=== PATIENT | female | born 1945 | race Caucasian/White ===

== ENCOUNTER 2016-11-14 20:55 | Emergency (ER) | payer MEDICARE, OTHER ==
[2016-11-14 21:21] VITALS: BP 133/82
--- NOTE | 2016-11-14 21:45 | EDM.PDOC ---
ED HPI GENERAL MEDICAL PROBLEM - General Chief Complaint: Respiratory Problem Stated Complaint: Cough Time Seen by Provider: 11/14/16 21:30 Source of Information: Reports: Patient, RN Notes Reviewed History Limitations: Reports: No Limitations - History of Present Illness INITIAL COMMENTS - FREE TEXT/NARRATIVE: 71 year old female presents to the ED with complaints of a cough productive of occasional white/thin sputum. She's had the cough for approximately 10 days. She has associated symptoms of hoarse voice, sinus congestion and pressure, occasional runny nose, and ear pressure. She denies fever or chills, body aches , throat pain. No chest pain or shortness of breath. She has a history of seasonal allergies and says her allergies do see to be bothering her. She has tried afrin for sinus congestion. She is not a smoker and has no history of asthma or COPD. 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 Denies: Fever, Chills, Diaphoresis HEENT: Reports: Ear Pain, Rhinitis, Sinus Problem, Other (hoarse voice ). Denies: Throat Pain Respiratory: Reports: Cough, Sputum. Denies: Shortness of Breath Cardiovascular: Reports: No Symptoms. Denies: Chest Pain, Edema, Lightheadedness GI/Abdominal: Reports: No Symptoms. Denies: Abdominal Pain, Diarrhea, Vomiting ED EXAM, GENERAL - Physical Exam Exam: See Below Exam Limited By: No Limitations General Appearance: Alert, WD/WN, No Apparent Distress Ears: Normal External Exam, Normal Canal, Hearing Grossly Normal, Normal TMs, Other (fluid behind left TM. no erythema or sign of infection ) Ear Exam: Right Ear: TM normal, Left Ear: TM Dull, Bilateral Ear: Auricle Normal , Canal Normal Nose: Normal Inspection, Normal Mucosa Throat/Mouth: Normal Inspection, Normal Oropharynx, Other (hoarse voice ) Neck: Normal Inspection, Supple, Non-Tender Respiratory/Chest: No Respiratory Distress, Lungs Clear, Normal Breath Sounds, No Accessory Muscle Use, Chest Non-Tender, Other (occasional dry sounding cough) Cardiovascular: Regular Rate, Rhythm, No Edema, No Murmur Neurological: Alert, Oriented, Normal Cognition Skin Exam: Warm, Dry, Intact Course - Vital Signs Last Recorded V/S: Last Vital Signs Temp 97.8 F 11/14/16 21:19 Pulse 94 11/14/16 21:19 Resp 20 11/14/16 21:19 BP 133/82 11/14/16 21:19 Pulse Ox 98 11/14/16 21:19 Departure - Departure Time of Disposition: 21:42 Disposition: Home, Self-Care 01 Condition: good Clinical Impression: Bronchitis Allergic rhinitis Qualifiers: Allergic rhinitis trigger: unspecified Allergic rhinitis seasonality: seasonal Qualified Code(s): J30.2 - Other seasonal allergic rhinitis - Discharge Information Prescriptions: Azithromycin [Zithromax] 250 mg PO DAILY #6 tablet Instructions: Acute Bronchitis, [id number], Allergic Rhinitis Referrals: Henny Figueroa MD [Primary Care Provider] - Forms: ED Department Discharge Additional Instructions: Zithromax 2 tabs on day 1, then 1 tab daily for next 4 days Flonase 1 spray to each nostril twice a day for allergies Zyrtec or Claritin once a day for allergy symptoms Tylenol as needed for discomfort Follow-up in clinic next week if not improved Return to ER with worsening of symptoms
== END 2016-11-14 22:03 | disposition home or self-care (01) ==
LOC: JD.ED 20:55
DX: J40 Bronchitis, not specified as acute or chronic (principal); J30.2 Other seasonal allergic rhinitis; F41.9 Anxiety disorder, unspecified; Z96.649 Presence of unspecified artificial hip joint; Z79.2 Long term (current) use of antibiotics; Z79.899 Other long term (current) drug therapy; Z88.8 Allergy status to other drugs, medicaments and biological substances; Z91.030 Bee allergy status
CPT/HCPCS: 99283

== ENCOUNTER 2016-12-24 08:56 | Day surgery (SDC) | payer MEDICARE, OTHER ==
[~2016-12-24 08:56] MED LIST: Cefuroxime 10 MG/ML SYRINGE EYELF SCH; Lidocaine 1% PF 2 ML SDV INJECT SCH; Pilocarpine 4% Ophth Soln 15 ML Bot EYELF SCH
[2016-12-24] MEDS: Polymyxin B/Trimethoprim 10 ML Bottle EYELF SCH ×3 (09:46→11:29)
[2016-12-24] MEDS: Brimonidine 0.2% Ophth Soln 5 ML Bottle EYELF SCH ×3 (09:51→11:29)
[2016-12-24] MEDS: Phenylephrine 2.5% Ophth Soln 2 ML Bot EYELF SCH ×5 (09:57→11:18)
--- NOTE | 2016-12-24 10:06 | PCM.PREANE ---
Preanesthetic Assessment - Anesthesia/Transfusion/Family Hx Anesthesia History: Prior Anesthesia Without Reaction Family History of Anesthesia Reaction: No Transfusion History: No Prior Transfusion(s) - Review of Systems General: No Symptoms, Other Pulmonary: Other (s/p bronchitis 3 weeks ago, no residual ) Cardiovascular: Chest Pain (rarely, s/p workup 2 weeks ago, all negative) 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: No symptoms Neurological: No Symptoms Other: Reports: Depression - Physical Assessment NPO Status Date: 12/23/16 NPO Status Time: 21:00 Pulse: 71 O2 Sat by Pulse Oximetry: 98 Respiratory Rate: 16 Blood Pressure: 118/68 Vital Signs: Last Vital Signs Temp 36.5 C 12/24/16 09:35 Pulse 71 12/24/16 09:35 Resp 16 12/24/16 09:35 BP 118/68 12/24/16 09:35 Pulse Ox 98 12/24/16 09:35 Height: 1.63 m Weight: 68.946 kg ASA Class: 2 Mental Status: Alert & Oriented x3 Airway Class: Mallampati = 2 Dentition: Reports: Normal Dentition Thyro-Mental Finger Breadths: 2 Mouth Opening Finger Breadths: 2 ROM/Head Extension: Full Lungs: Clear to auscultation, Normal respiratory effort Cardiovascular: Regular Rate, Regular Rhythm - Allergies Allergies/Adverse Reactions: Allergies Allergy/AdvReac Type Severity Reaction Status Date / Time venom-honey bee Allergy Hives Verified 12/23/16 16:02 [bee venom (honey bee)] propoxyphene [From Darvon] AdvReac Dizziness Verified 12/23/16 16:02 - Blood Blood Available: No Product(s) Available: None - Anesthesia Plan Pre-Op Medication Ordered: None - Acknowledgements Anesthesia Type Planned: MAC Pt an Appropriate Candidate for the Planned Anesthesia: Yes Alternatives and Risks of Anesthesia Discussed w Pt/Guardian: Yes Pt/Guardian Understands and Agrees with Anesthesia Plan: Yes PreAnesthesia Questionnaire 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 History: Reports: 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, , Other (See Below) Other OB/BYN History: A and P repair Psychiatric History: Reports: Anxiety - Past Surgical History Musculoskeletal Surgical History: Reports: Hip Replacement - SUBSTANCE USE Smoking Status *Q: Never Smoker Recreational Drug Use History: No - HOME MEDS Home Medications: Home Meds LORazepam [Ativan] 1 mg PO BID 02/19/16 [History] buPROPion [Wellbutrin] 300 mg PO DAILY 02/19/16 [History] Naproxen 500 mg PO BID 07/13/16 [History] - CURRENT (IN HOUSE) MEDS Current Meds: Current Medications Brimonidine Tartrate (Alphagan 0.2% Ophth Soln) 0 ml EYELF ASDIRECTED DARLING Stop: 12/25/16 18:00 Last Admin: 12/24/16 09:51 Dose: 1 drop Cefuroxime Sodium (Zinacef) 0 mg EYELF ASDIRECTED DARLING Stop: 12/24/16 18:00 Lidocaine HCl (Xylocaine-Mpf 1%) 10 ml INJECT ASDIRECTED DARLING Stop: 12/24/16 18:00 Phenylephrine HCl (Brock-Synephrine 2.5% Ophth Soln) 0 ml EYELF ASDIRECTED DARLING Stop: 12/24/16 18:00 Last Admin: 12/24/16 09:57 Dose: 1 drop Pilocarpine HCl (Pilocar 4% Ophth Soln) 0 ml EYELF ASDIRECTED DARLING Stop: 12/24/16 18:00 Polymyxin/Trimethoprim Sulfate (Polytrim Ophth Soln) 0 ml EYELF ASDIRECTED DARLING Stop: 12/24/16 18:00 Last Admin: 12/24/16 09:46 Dose: 1 drop Tetracaine HCl (Tetracaine 0.5% Steri-Unit Asmmi) 0 ml EYELF ASDIRECTED DARLING Stop: 12/24/16 18:00 Tropicamide (Mydriacyl 1% Ophth Soln) 0 ml EYELF ASDIRECTED DARLING Stop: 12/24/16 18:00 Last Admin: 12/24/16 10:01 Dose: 1 drop
[2016-12-24] MEDS: Tetracaine HCl/PF 0.5% 4 ML Bottle EYELF SCH ×2 (11:06→11:21)
--- NOTE | 2016-12-24 11:35 | PCM48HPAN ---
Post Anesthesia Note - EVALUATION WITHIN 48HRS OF ANESTHETIC Vital Signs in Normal Range: Yes Patient Participated in Evaluation: Yes Respiratory Function Stable: Yes Airway Patent: Yes Cardiovascular Function Stable: Yes Hydration Status Stable: Yes Pain Control Satisfactory: Yes Nausea and Vomiting Control Satisfactory: Yes Mental Status Recovered: Yes
[2016-12-24 11:42] VITALS: BP 115/61
== END 2016-12-24 11:40 | disposition home or self-care (01) ==
LOC: JD.SDS 08:56
PROVIDERS: ATTEND Ophthalmology
DX: H26.9 Unspecified cataract (principal); F41.9 Anxiety disorder, unspecified; F32.9 Major depressive disorder, single episode, unspecified; Z90.710 Acquired absence of both cervix and uterus; Z87.891 Personal history of nicotine dependence; Z96.649 Presence of unspecified artificial hip joint; Z79.899 Other long term (current) drug therapy; Z88.8 Allergy status to other drugs, medicaments and biological substances; Z91.030 Bee allergy status
CPT/HCPCS: 66984; A9270; C1780; J0697

== ENCOUNTER 2017-01-21 09:35 | Day surgery (SDC) | payer MEDICARE, OTHER ==
[2017-01-21] MEDS: Polymyxin B/Trimethoprim 10 ML Bottle EYERT SCH ×4 (09:44→11:30)
[2017-01-21] MEDS: Brimonidine 0.2% Ophth Soln 5 ML Bottle EYERT SCH ×4 (09:48→11:30)
[2017-01-21] MEDS: Phenylephrine 2.5% Ophth Soln 2 ML Bot EYERT SCH ×6 (09:52→11:03)
--- NOTE | 2017-01-21 09:54 | PCM.PREANE ---
Preanesthetic Assessment - Anesthesia/Transfusion/Family Hx Anesthesia History: Prior Anesthesia Without Reaction Family History of Anesthesia Reaction: No Transfusion History: No Prior Transfusion(s) - Review of Systems General: No Symptoms Pulmonary: No Symptoms Cardiovascular: No Symptoms 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: No symptoms Neurological: No Symptoms Other: Reports: None - Physical Assessment NPO Status Date: 01/20/17 NPO Status Time: 00:00 Pulse: 78 O2 Sat by Pulse Oximetry: 98 Respiratory Rate: 16 Blood Pressure: 114/63 Temperature: 36.3 C Height: 1.63 m Weight: 68.946 kg ASA Class: 2 Mental Status: Alert & Oriented x3 Airway Class: Mallampati = 2 Dentition: Reports: Broken Tooth/Teeth (front top) Thyro-Mental Finger Breadths: 3 Mouth Opening Finger Breadths: 2 ROM/Head Extension: Full Lungs: Clear to auscultation, Normal respiratory effort Cardiovascular: Regular Rate, Regular Rhythm - Allergies Allergies/Adverse Reactions: Allergies Allergy/AdvReac Type Severity Reaction Status Date / Time venom-honey bee Allergy Hives Verified 01/20/17 14:29 [bee venom (honey bee)] propoxyphene [From Darvon] AdvReac Dizziness Verified 01/20/17 14:29 - Blood Blood Available: No Product(s) Available: None - Anesthesia Plan Pre-Op Medication Ordered: None - Acknowledgements Anesthesia Type Planned: MAC Pt an Appropriate Candidate for the Planned Anesthesia: Yes Alternatives and Risks of Anesthesia Discussed w Pt/Guardian: Yes Pt/Guardian Understands and Agrees with Anesthesia Plan: Yes PreAnesthesia Questionnaire 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 History: Reports: 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, , Other (See Below) Other OB/BYN History: A and P repair Psychiatric History: Reports: Anxiety - Past Surgical History Musculoskeletal Surgical History: Reports: Hip Replacement - SUBSTANCE USE Smoking Status *Q: Never Smoker Tobacco Use Within Last Twelve Months: No Second Hand Smoke Exposure: No Days Per Week of Alcohol Use: 1 Number of Drinks Per Day: 0 Total Drinks Per Week: 0 Recreational Drug Use History: No - HOME MEDS Home Medications: Home Meds LORazepam [Ativan] 1 mg PO BID 02/19/16 [History] buPROPion [Wellbutrin] 300 mg PO DAILY 02/19/16 [History] Naproxen 500 mg PO BID 01/07/17 [History] - CURRENT (IN HOUSE) MEDS Current Meds: Current Medications Brimonidine Tartrate (Alphagan 0.2% Ophth Soln) 0 ml EYERT ASDIRECTED DARLING Stop: 01/21/17 16:00 Cefuroxime Sodium (Zinacef) 0 mg EYERT ASDIRECTED DARLING Stop: 01/21/17 18:00 Lidocaine HCl (Xylocaine-Mpf 1%) 10 ml INJECT ASDIRECTED DARLING Stop: 01/21/17 18:00 Phenylephrine HCl (Brock-Synephrine 2.5% Ophth Soln) 0 ml EYERT ASDIRECTED DARLING Stop: 01/21/17 16:00 Pilocarpine HCl (Pilocar 4% Ophth Soln) 0 ml EYERT ASDIRECTED DARLING Stop: 01/21/17 16:00 Polymyxin/Trimethoprim Sulfate (Polytrim Ophth Soln) 0 ml EYERT ASDIRECTED DARLING Stop: 01/21/17 16:00 Last Admin: 01/21/17 09:44 Dose: 1 drop Tetracaine HCl (Tetracaine 0.5% Steri-Unit Sammi) 0 ml EYERT ASDIRECTED DARLING Stop: 01/21/17 16:00 Tropicamide (Mydriacyl 1% Ophth Soln) 0 ml EYERT ASDIRECTED DARLING Stop: 01/21/17 16:00
[2017-01-21] MEDS: Pilocarpine 4% Ophth Soln 15 ML Bot EYERT SCH ×2 (10:55→11:30)
[2017-01-21] MEDS: Cefuroxime 10 MG/ML SYRINGE EYERT SCH ×2 (10:55→11:28)
[2017-01-21] MEDS: Tetracaine HCl/PF 0.5% 4 ML Bottle EYERT SCH ×2 (10:55→11:19)
[2017-01-21] MEDS: Lidocaine 1% PF 2 ML SDV INJECT SCH ×2 (10:55→11:19)
[2017-01-21 11:40] VITALS: BP 110/62
== END 2017-01-21 11:40 | disposition home or self-care (01) ==
LOC: JD.SDS 09:35
PROVIDERS: ATTEND Ophthalmology
DX: H26.9 Unspecified cataract (principal); Z88.8 Allergy status to other drugs, medicaments and biological substances; Z91.030 Bee allergy status; Z98.890 Other specified postprocedural states; Z90.710 Acquired absence of both cervix and uterus; Z96.649 Presence of unspecified artificial hip joint; Z79.899 Other long term (current) drug therapy
CPT/HCPCS: 66984; C1780; J0697; A9270-GY

== ENCOUNTER 2019-03-03 15:20 | Emergency (ER) | payer MEDICARE, OTHER ==
[2019-03-03 15:31] VITALS: BP 132/81
--- NOTE | 2019-03-03 17:29 | EDM.PDOC ---
ED HPI GENERAL MEDICAL PROBLEM - General Chief Complaint: Bite:Animal, Insect Stated Complaint: ALLERGIC TO BEES/ STUNG BY BEE TODAY Time Seen by Provider: 03/03/19 17:05 Source of Information: Reports: Patient History Limitations: Reports: No Limitations - History of Present Illness INITIAL COMMENTS - FREE TEXT/NARRATIVE: 73-year-old female presents for a wasp sting to the left hand. Patient reports she was bit by a wasp around 10:30 or 11:00 this morning while she was watering her garden. She states that it swelled immediately. She did take 25 mg of Benadryl earlier today, none since. She has been icing the area but continues to have pain. She denies any hives, difficulty breathing, throat swelling or throat pain. She has had reactions to Bee and wasp stings in the past. She's never had any anaphylactic reactions. 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, , Other (See Below) 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 Denies: Rash ED EXAM, ANIMAL BITE - Physical Exam Exam: See Below Exam Limited By: No Limitations General Appearance: Alert, WD/WN, No Apparent Distress Eye Exam: Bilateral Eye: Normal Inspection, PERRL Ears: Normal External Exam Nose: Normal Inspection. No: Nasal Flaring Throat/Mouth: Normal Inspection, Normal Lips, Normal Voice, No Airway Compromise , Other (no uvula sweling) Respiratory/Chest: No Respiratory Distress, Lungs Clear, Normal Breath Sounds Cardiovascular: Normal Peripheral Pulses, Regular Rate, Rhythm, No Murmur Neurological: Alert, Oriented, Normal Cognition Psychiatric: Normal Affect, Normal Mood Skin Exam: Normal Color, Warm/Dry, Other (slight erythema to the left dorsal hand approximately 8cm in diameter, slight increased warmth, associated swelling ) Course - Vital Signs Last Recorded V/S: Last Vital Signs Temp Pulse 78 03/03/19 15:27 Resp 14 03/03/19 15:27 BP 132/81 03/03/19 15:27 Pulse Ox 100 03/03/19 15:27 - Re-Assessments/Exams Free Text/Narrative Re-Assessment/Exam: 03/03/19 17:27 local allergic reaction. Recommend an antihistamine, ice, compression and elevation. No indication for steroids at this time. No indication for antibiotics at this time. Discharge instructions as documented. Departure - Departure Time of Disposition: 17:27 Disposition: Home, Self-Care 01 Condition: Good Clinical Impression: Allergic reaction - Discharge Information *PRESCRIPTION DRUG MONITORING PROGRAM REVIEWED*: No *COPY OF PRESCRIPTION DRUG MONITORING REPORT IN PATIENT JASON: No Instructions: Insect Bite, Adult Referrals: Henny Figueroa MD [Primary Care Provider] - Forms: ED Department Discharge Additional Instructions: Recommended an antihistamine. Take Benadryl every 6 hours or you may take another antihistamine such as Claritin, Suzy or Zyrtec as the package directs. Take this for the next 3-5 days until the swelling subsides. Ice and elevate the hand is much as you able to. Recommend using an Eduardo bandage for compression. The swelling may get slightly worse before it gets better. Follow-up with your primary care provider or return to the ER if you are notice purulent drainage, fevers or erythema to the area. Please return to the ER for symptoms change or worsen.
== END 2019-03-03 17:35 | disposition home or self-care (01) ==
LOC: JD.ED 15:20
DX: T78.40XA Allergy, unspecified, initial encounter (principal); F41.9 Anxiety disorder, unspecified; Z91.030 Bee allergy status; Z88.8 Allergy status to other drugs, medicaments and biological substances; Z79.899 Other long term (current) drug therapy
CPT/HCPCS: 99282